=== PATIENT | female | born 1995 | race Caucasian/White ===

== ENCOUNTER 2021-05-24 11:09 | Outpatient (RCR) | payer OTHER, SELFPAY | END 2021-08-20 23:59 | disposition home or self-care (01) | LOC: ANHLAB 11:09 | PROVIDERS: Visit Provider Nurse Practitioner | DX: O20.0 Threatened abortion (principal); Z3A.00 Weeks of gestation of pregnancy not specified | CPT/HCPCS: 36415; 84702; 86850; 86900; 86901 ==

== ENCOUNTER → 2021-05-30 14:24 | Outpatient (CLI) | payer OTHER, SELFPAY ==
--- NOTE | ~2021-05-30 | US_ITS ---
EXAMINATION: US OB transvaginal DATE: 05/30/2021 14:55 INDICATION: viability. TECHNIQUE: Real-time transabdominal and transvaginal obstetric ultrasound. FINDINGS: No prior studies for comparison. The uterus measures 8.6 x 4.5 x 5.3 cm. There is an intrauterine gestational sac, with pole ivette ntified. The crown rump length measures 0.26 cm, which correlates with a estimated gestational age o f 5 weeks 6 days. heart tones are identified measuring 97 BPM . There is a small subchorionic hemorrhage. To the gestational sac measuring 1.6 x 1.1 x 0.8 cm. There is a second subchorionic hemo rrhage inferiorly measuring 1 x 1 x 0.6 cm. The ovaries are within normal limits. IMPRESSION: 1. SL IUP with an EGA of 5 weeks, 6 days (EDC by current ultrasound of 01/24/2022). 2: 2 separate areas of subchorionic hemorrhage superior and inferior to the gestational sac. Reviewed, dictated and finalized at location A. IMPRESSION: 1. SL IUP with an EGA of 5 weeks, 6 days (EDC by current ultrasound of ). 2: 2 separate areas of subchorionic hemorrhage superior and inferior to the ge stational sac.
== END ==
PROVIDERS: Visit Provider Obstetrics & Gynecology
DX: O36.80X0 Pregnancy with inconclusive fetal viability, not applicable or unspecified (principal); Z3A.01 Less than 8 weeks gestation of pregnancy; O36.8911 Maternal care for other specified fetal problems, first trimester, fetus 1
CPT/HCPCS: 76817

== ENCOUNTER → 2021-06-13 11:22 | Outpatient (CLI) | payer OTHER, SELFPAY ==
--- NOTE | ~2021-06-13 | US_ITS ---
EXAMINATION: US OB transvaginal DATE: 06/13/2021 11:48 INDICATION: Subchorionic hematoma follow-up. TECHNIQUE: Real-time transvaginal pelvic ultrasound was performed. COMPARISON: ultrasound 05/30/21 FINDINGS: The uterus measures 9.1 x 5.1 x 6.2 cm. There is an intrauterine gestational sac. A yolk sac is iden tified. The crown rump length measures 3 mm, which correlates with an estimated gestational ag e of 5 weeks and 6 day(s) (+/-) 4 day(s). heart motion is not identified by M-mode Doppler, whi ch may be normal at this size. The right ovary measures 3.0 x 2.0 x 3.0 cm. The left ovary measures 2 .6 x 1.6 x 2.1 cm. There is no free fluid in the pelvis. IMPRESSION: 1. Single intrauterine gestation measuring 3 mm without change in size from 05/30/2021 suggesting fe wilfred demise. Correlate with beta-hCG. Reviewed, dictated and finalized at location A. STARTER IMPRESSION: 1. Single intrauterine gestation measuring 3 mm without change in size from suggesting demise. Correlate with beta-hCG.
== END ==
PROVIDERS: Visit Provider Obstetrics & Gynecology
DX: O36.8911 Maternal care for other specified fetal problems, first trimester, fetus 1 (principal); Z3A.01 Less than 8 weeks gestation of pregnancy
CPT/HCPCS: 76817

== ENCOUNTER → 2021-06-20 09:23 | Outpatient (CLI) | payer OTHER, SELFPAY ==
--- NOTE | ~2021-06-20 | US_ITS ---
EXAMINATION: US OB transvaginal EXAM DATE: 06/20/2021 09:46 INDICATION: Incomplete miscarriage . 1st trimester. TECHNIQUE: Pelvic obstetrical transabdominal sonogram was performed by a technologist. There are mu ltiple grayscale and Doppler images available for interpretation. Comparison is made to prior examina tion from 06/13/2021. FINDINGS: Uterus measures 9.2 x 4.2 x 5.4 cm. The previously seen gestation sac has significantly dec reased in size, measuring 6 mm mean sac diameter. No viable pole or yolk sac identified. demise with retained products. The endometrium is thickened at 1.5 cm. The ovaries are morphologicall y normal. IMPRESSION: demise, retained products of conception. Reviewed, dictated and finalized at location B. EF WORKER
== END ==
PROVIDERS: Visit Provider Obstetrics & Gynecology
DX: O03.4 Incomplete spontaneous abortion without complication (principal)
CPT/HCPCS: 76817

== ENCOUNTER 2021-06-20 11:11 | Day surgery (SDC) | payer OTHER, SELFPAY ==
[2021-06-20 10:31] VITALS: BMI 29.6
--- NOTE | 2021-06-20 10:39 | PC.NURSE ---
Report to the Outpatient Waiting Room, entrance under the green pavilion located off [facility], at time 1130 on date 06/20/21. OR Time: 1330. - You and your visitor will be asked a series of questions to screen for COVID 19 for your protection. - A mask is required within the hospital. - Only one visitor is allowed at this time. Patient visitors will be guided where to wait when not with patient. Preoperative COVID Testing Requirements: No COVID Test needed if: (proof is required; if not received patient will have Rapid Test prior to entry) - Patient has received COVID Vaccine at least 14 days prior to procedure date or - Patient has positive COVID test result within last 90 days of surgery date. COVID Test needed if above criteria is not met If not COVID vaccinated a COVID test must be conducted within 72 hours of surgery and patient is asked to isolate self from time of testing until procedure. You will go to the [facility] for your COVID testing. The [facility] is located at the corner of [address] [facility]. You will only be called if COVID results are positive and your surgeon may reschedule your elective surgery date. Patients may have clear liquids (water, carbonated beverages, clear teas, apple juice) until 3 hours prior to surgery with a maximum of 20 ounces. - No food from midnight until time of surgery - Infants may have breast milk until 4 hours before surgery, infant formula 6 hours prior to surgery. - Children will be allowed to drink immediately following surgery. If applicable, please bring a bottle or sippy cup to assist with drinking. Juice, water, soda, and popsicles are readily available. For infants on formula, please bring formula the day of surgery. Pacifiers are allowed. Take the following medications with a SIP of water the morning of surgery: BUSPIRONE, EFFEXOR, PAIN PILL (IF NEEDED) Medications to discontinue per physician: N/A Date to take last dose: N/A Please no make-up, nail bengali, hairspray, perfume, deodorant, or body powder the day of surgery. No jewelry (including any body piercings) or valuables the day of surgery, leave them at home. Please take a shower or bath the night before, or the morning of, surgery with an antibacterial soap. Wear comfortable, loose fitting clothing. Children are encouraged to wear pajamas. - Jewelry must be removed prior to entering the operating room. Rings and piercings that are not removed may be cut off. - The hospital will not accept responsibility for valuables. - Please leave all valuables, including medications, at home the day of surgery. If you are going home after surgery, a licensed patient transportation driver must drive you home. - NO public transportation without another adult. - We recommend that an adult stay with you for 24 hours following discharge. - We also recommend that you do not drive, make important decision, drink alcoholic beverages, or take any drugs that were not prescribed by your health care provider for at least 24 hours after your discharge time. For Pediatric surgeries, we recommend two adults accompany the child home (only one inside the building at this time). Follow any additional instructions given to you from your surgeon. Telephone instructions given to CHRISTOPHER KUMAR and asked if any additional questions and then verbalized understanding. Patient advised to call surgeon office or pre surgery nurse liaison [phone] if any additional questions.
--- NOTE | 2021-06-20 11:38 | PM.HPGS ---
History of Present Illness History of Present Illness Consent: Risks, benefits, and alternatives have been discussed and questions answered. Patient agrees to proceed with procedure. Chief complaint: missed AB Narrative: Arielle Caro is a 26 year old female approx 6 weeks by ultrasound with demise. Patient took cytotec on 06/14/2021 and 06/15/2021. Patient reported bleeding started on and reports still bleeding heavy and passiing tissue. Patient seen in office and products removed from vagina and os. Patient sent for Ultrasound and shows products of conception and clots. Review of Systems Constitutional: Constitutional: Reports fatigue and Reports lethargy PMF Past Medical History Medical History (Updated 06/20/21 @ 11:44 by Marcelino Fernandez MD) Incomplete Social History Social History Smoking status: Never smoker Alcohol intake: current Drinks per week: 2 Substance use: never Substance use type: does not use Living arrangements: with family Spiritual care concerns: No Meds Home Medications and Allergies Home Medications Medication Instructions Recorded Confirmed Type buspirone 10 mg PO BID 06/20/21 06/20/21 History hydrocodone-acetaminophen [[place]] 1 tablet PO Q6H PRN 06/20/21 06/20/21 History venlafaxine [Effexor XR] 75 mg PO DAILY 06/20/21 06/20/21 History Allergies Allergy/AdvReac Type Severity Reaction Status Date / Time No Known Allergies Allergy Verified 06/20/21 10:29 Exam Const: General: cooperative Orientation/consciousness: patient oriented x3 Resp: Auscultation: clear to auscultation bilaterally Cardio: Rate: regular rate Rhythm: regular rhythm GI: GI Palp: Yes Soft to palpation : Speculum Exam - Vagina: normal appearance of the vagina, vaginal bleeding and tissue present in vagina Assessment and Plan Assessment and plan (1) Incomplete : Code(s): O03.4 - Incomplete spontaneous without complication Status: Acute Assessment and Plan: scheduled for a suction dilation and curettage risk and benefits reviewed with patient.
[2021-06-20 11:45] VITALS: BP 124/65; PULSE 76; RESP 14; TEMP 36.4; O2SAT 100; BMI 29.2
--- NOTE | 2021-06-20 13:10 | SUR.PREOP ---
1310- Notified Dr. Fernandez patient is documented in blood bank history as O positive, per Dr. Fernandez no RH factor lab needed. Clarified giving 1000 MG PO Tylenol to patient pre operatively with patient having taken [place] 5-325MG at [address]. [address] Fernandez discontinue orders for Tylenol.
--- NOTE | 2021-06-20 13:12 | WPDANESEPPF ---
Anes - Initial Pre Proc Eval Procedure: Operation Date: 06/20/21 13:30 Proposed Procedures p Suction Dilatation and Curettage - Marcelino Fernandez MD Date/Time: 06/20/21 13:12 Surgeon: Marcelino Fernandez MD Pre Op Diagnosis: missed AB Patient Data Age: 26 Gender: F Height: 1.57 m Weight: 72.4 kg Allergies Allergy/AdvReac Type Severity Reaction Status Date / Time No Known Allergies Allergy Verified 06/20/21 13:08 Home Medications Medication Instructions Recorded Confirmed Type buspirone 10 mg PO BID 06/20/21 06/20/21 History doxycycline hyclate [Doxy-Caps] 100 mg PO BID 06/20/21 06/20/21 History hydrocodone-acetaminophen [[place]] 1 tablet PO Q6H PRN 06/20/21 06/20/21 History venlafaxine [Effexor XR] 75 mg PO DAILY 06/20/21 06/20/21 History Patient hx anesthesia problems: none Family hx anesthesia problems: none Results Review: All pre-operative results and documents have been reviewed as part of the pre-operative evaluation. [facility] Past Medical History Medical History (Updated 06/20/21 @ 13:13 by Robert Perry MD) Incomplete Overweight Surgical History Surgical History (Updated 06/20/21 @ 13:15 by Robert Perry MD) History of lumbar surgery Social History Social History Smoking status: Never smoker Alcohol intake: current Drinks per week: 2 Substance use: never Substance use type: does not use Living arrangements: with family Spiritual care concerns: No Anes - Eval Final PreProcedure Day of Procedure 06/20/21 13:12 Patient weight: overweight Heart: regular rate and rhythm Lungs: clear to auscultation Airway: Mallampati scale class II Neurological: alert and oriented Last oral intake: >/= 8 hours ASA classification: II Emergent: no Anesthetic plan: proceed Anesthesia type and monitoring: general GIVS and standard monitoring Results Review: All pre-operative results and documents have been reviewed as part of the pre-operative evaluation. Informed Consent: The patient's anesthetic plan and its attendant risks and benefits were discussed with the patient/family/POA. Questions were solicited and answers provided to the satisfaction of the patient/family/POA.
[2021-06-20] MEDS: LACTATED RINGERS 1,000 ML 30 ML IV CONT (13:16)
--- NOTE | 2021-06-20 13:25 | SUR.PREOP ---
1325- Notified patient Arielle and spouse procedure may be delayed. Patient and spouse verbalized understanding.
--- NOTE | 2021-06-20 13:37 | WPDHPUPDATE1 ---
History and Physical Update Update Date/Time: 06/20/21 13:37 History and Physical has been reviewed, including an updated exam of the patient. There are NO changes in the patient's condition. Risks, benefits, and alternatives have been discussed and questions answered. Patient agrees to proceed with procedure.
[2021-06-20 14:09] VITALS: BP 124/74; PULSE 78; RESP 16; O2SAT 100
[2021-06-20 14:39] VITALS: BP 127/80; PULSE 71; RESP 16
[2021-06-20 14:50] VITALS: BP 107/69; PULSE 72; RESP 16
--- NOTE | 2021-06-21 13:17 | W.PM.PROC2 ---
Procedure Note - Detailed Date of Procedure 06/21/21 Pre-op Diagnosis missed AB Post-op Diagnosis same Procedure Performed suction dilation and curettage Surgeon Marcelino Fernandez MD Anesthesia MAC and local Description of Procedure patient taking to or and placed in lithotomy position. a bivalve speculum was placed and uterus sounded to 9 cm. the cervix was injected with lidocaine bilaterally at 2 and 10 oclock position with 1% lidocaine. The cervix was dilated. A 8 mm suction curet was placed in cavity and activated evacuating contents in all four quadrants. a sharp curettage was performed in all four quadrants. . hemostasis was and patient taken to recovery in stable condition Estimated Blood Loss -75.0 Drains No Packing No Pathology yes Complications None Condition stable Disposition observation
== END 2021-06-20 15:00 | disposition home or self-care (01) ==
PROVIDERS: PCP Family Medicine; Visit Provider Obstetrics & Gynecology
PROC: (CPT 59820; principal; 2021-06-20 13:30)
DX: O02.1 Missed abortion (principal); R53.83 Other fatigue
CPT/HCPCS: 59820; 88305; J1100; J2250; J2405; J2704; J3010; J7120

== ENCOUNTER 2022-04-08 17:24 | Outpatient (RCR) | payer OTHER, SELFPAY | END 2022-07-07 23:59 | disposition home or self-care (01) | LOC: ANHLAB 17:24 | PROVIDERS: Visit Provider Obstetrics & Gynecology Gynecology | DX: O26.21 Pregnancy care for patient with recurrent pregnancy loss, first trimester (principal); Z3A.00 Weeks of gestation of pregnancy not specified | CPT/HCPCS: 36415; 84702 ==

== ENCOUNTER 2022-04-10 15:32 | Outpatient (RCR) | payer OTHER, SELFPAY | END 2022-07-09 23:59 | disposition home or self-care (01) | LOC: ANHLAB 15:32 | PROVIDERS: Referring Provider Obstetrics & Gynecology Gynecology; Visit Provider Obstetrics & Gynecology Gynecology | DX: O26.21 Pregnancy care for patient with recurrent pregnancy loss, first trimester (principal); Z3A.00 Weeks of gestation of pregnancy not specified | CPT/HCPCS: 36415; 84702 ==

== ENCOUNTER → 2022-04-20 11:21 | Outpatient (CLI) | payer OTHER, SELFPAY ==
--- NOTE | ~2022-04-20 | US_ITS ---
EXAMINATION: US OB transvaginal DATE: 04/20/2022 11:50 INDICATION: Incomplete miscarriage. TECHNIQUE: Real-time transvaginal obstetric ultrasound. FINDINGS: No prior studies for comparison. The uterus measures 8.7 x 5.1 x 8 cm. There is an intrauterine gestational sac, with pole ident ified. There aren't multiple subchorionic hematomas including to the right of the uterus measuring 1. 9 x 1.2 x 1.8 cm into the left of the uterus measuring 2.8 x 1 x 0.8 cm. The crown rump length measur es 1.46 cm, which correlates with a estimated gestational age of 7 weeks 6 days. heart tones are identified measuring 160 BPM. There is a small amount of free fluid in the pelvis. The right ovar y is unremarkable. IMPRESSION: 1. SL IUP with an EGA of 7 weeks, 6 days (EDC by current ultrasound of 12/01/2022). 2: Moderate sized subchorionic hematomas. Recommend attention to these abnormalities on subsequent e xaminations. Reviewed, dictated and finalized at location A. IMPRESSION: 1. SL IUP with an EGA of 7 weeks, 6 days (EDC by current ultrasound of 12/02/19). 2: Moderate sized subchorionic hematomas. Recommend attention to these abnorma lities on subsequent examinations.
== END ==
PROVIDERS: PCP Obstetrics & Gynecology Gynecology; Visit Provider Obstetrics & Gynecology Gynecology
DX: O26.21 Pregnancy care for patient with recurrent pregnancy loss, first trimester (principal); Z3A.01 Less than 8 weeks gestation of pregnancy; O36.8911 Maternal care for other specified fetal problems, first trimester, fetus 1
CPT/HCPCS: 76817

== ENCOUNTER → 2022-05-25 10:30 | Outpatient (CLI) | payer OTHER, SELFPAY ==
--- NOTE | ~2022-05-25 | US_ITS ---
EXAMINATION: US OB <= 14 weeks fetus DATE: 05/25/2022 11:01 INDICATION: Subchorionic hematoma follow-up during first trimester TECHNIQUE: Real-time pelvic transabdominal and transvaginal ultrasound was performed. COMPARISON: 04/20/2022 FINDINGS: The uterus measures 11.8 x 7 x 10.2 cm. There is an intrauterine gestational sac. No persi stent subchorionic hematoma is identified A yolk sac is identified. heart motion is identified measuring 148 beats per minute (bpm) by M-mode Doppler. The crown rump length measures 7 cm, wh ich correlates with an estimated gestational age of 13 weeks and 1 day(s) (+/-) 8 day(s). The ovaries are not visualized however no adnexal abnormality is seen. There is no free fluid in the pelvis. IMPRESSION: 1. Live intrauterine with an estimated gestational age of 13 weeks and 1 day(s) (+/-) 1 day (s) and an estimated delivery date of 11/29/2022. 2. No persistent subchorionic hematoma identified. Reviewed, dictated and finalized at location A. IMPRESSION: 1. Live intrauterine with an estimated gestational age of 13 weeks an d 1 day(s) (+/-) 1 day(s) and an estimated delivery date of 11/29/2022. 2. No persistent subchorionic hematoma identified.
== END ==
PROVIDERS: PCP Obstetrics & Gynecology Gynecology; Visit Provider Obstetrics & Gynecology Gynecology
DX: O36.8910 Maternal care for other specified fetal problems, first trimester, not applicable or unspecified (principal); O26.21 Pregnancy care for patient with recurrent pregnancy loss, first trimester; Z3A.13 13 weeks gestation of pregnancy
CPT/HCPCS: 76801

== ENCOUNTER → 2022-07-03 10:15 | Outpatient (CLI) | payer OTHER, SELFPAY ==
--- NOTE | ~2022-07-03 | US_ITS ---
EXAMINATION: US OB /maternal detail DATE: 07/03/2022 11:02 INDICATION: Second trimester anatomic survey TECHNIQUE: Real-time ultrasound of the pelvis was performed. COMPARISON: None. FINDINGS: There is a single living fetus in vertex presentation. The placenta is anterior and 4.1 cm from the i nternal cervical os. The cervical length is 3.8 cm. heart rate is 147 beats per minute (bpm). cardiac activity and movement are noted. The amniotic fluid index is subjectively normal. The following anatomy was identified as normal: 4 chamber heart 3 vessel cord cord insertion kidneys urinary bladder stomach spine diaphragm ventricles cisterna magna cerebellum The following biometric data were obtained: Biparietal diameter (BPD): 4.4 cm; head circumference (HC): 16.0 cm; abdominal circumference (AC): 13 .5 cm; femur length (FL): 2.9 cm. These measurements are concordant. Estimated weight is 267 g +/- 40 g, which correlates with the 78th percentile when 12/01/2022 is used as estimated date of delivery. As single measurements, these parameters are each equal to the following estimated gestational ages w ith ranges of +/- 2 standard deviations: BPD: 19 weeks 2 days ( 17 weeks 4 days - 21 weeks 0 days). HC: 18 weeks 6 days ( 17 weeks 2 days - 20 weeks 2 days). AC: 19 weeks 0 days ( 16 weeks 6 days - 21 weeks 0 days). FL: 19 weeks 0 days ( 17 weeks 2 days - 20 weeks 6 days). estimated gestational age based solely on measurements from this exam is 19 weeks 0 days +/- 1 weeks 2 days. IMPRESSION: 1. Single living fetus in vertex presentation. 2. Estimated weight is 267 g +/- 40 g, which correlates with the 78th percentile when 12/01/2022 is used as estimated date of delivery. Reviewed, dictated and finalized at location A. ER JOINER IMPRESSION: 1. Single living fetus in vertex presentation. 2. Estimated weight is 267 g +/- 40 g, which correlates with the 78th per centile when 12/01/2022 is used as estimated date of delivery.
== END ==
PROVIDERS: PCP Obstetrics & Gynecology Gynecology; Visit Provider Obstetrics & Gynecology Gynecology
DX: Z36.9 Encounter for antenatal screening, unspecified (principal)
CPT/HCPCS: 76805

== ENCOUNTER → 2022-10-31 11:23 | Outpatient (CLI) | payer BC, SELFPAY ==
--- NOTE | ~2022-10-31 | US_ITS ---
EXAMINATION: US OB follow up DATE: 10/31/2022 12:20 INDICATION: Size greater than dates. TECHNIQUE: Real-time ultrasound of the pelvis was performed. COMPARISON: Ultrasound 07/03/2022, 05/25/2022, 04/20/2022 FINDINGS: There is a single living fetus in vertex presentation. The placenta is anterior. heart rate is 141 beats per minute (bpm). The amniotic fluid index is 23.7 cm, which is normal. The following biometric data were obtained: Biparietal diameter (BPD): 9.0 cm; head circumference (HC): 32.2 cm; abdominal circumference (AC): 32 .7 cm; femur length (FL): 6.6 cm. These measurements are concordant. Estimated weight is 2786 g +/- 418 g, which correlates with the 50th percentile when 11/29/22 is used as estimated date of delivery. As single measurements, these parameters are each equal to the following estimated gestational ages: BPD: 36 weeks 4 days. HC: 36 weeks 2 days. AC: 36 weeks 4 days. FL: 33 weeks 5 days. estimated gestational age based solely on measurements from this exam is 35 weeks 6 days +/- 2 weeks 4 days. IMPRESSION: 1. Single living fetus in vertex presentation. 2. Estimated weight is 2786 g +/- 418 g, which correlates with the 50th percentile when 3 is used as estimated date of delivery. Note that estimated date of delivery based on the first ultr asound from 04/20/2022 would be 12/01/2022. Reviewed, dictated and finalized at location A. IMPRESSION: 1. Single living fetus in vertex presentation. 2. Estimated weight is 2786 g +/- 418 g, which correlates with the 50th percentile when 11/29/22 is used as estimated date of delivery. Note that estima [place] date of delivery based on the first ultrasound from 04/20/2022 would be 2022.
== END ==
PROVIDERS: PCP Advanced Practice Midwife; Visit Provider Advanced Practice Midwife
DX: O36.63X0 Maternal care for excessive fetal growth, third trimester, not applicable or unspecified (principal); Z3A.35 35 weeks gestation of pregnancy
CPT/HCPCS: 76816

== ENCOUNTER 2022-11-16 10:11 | Outpatient (CLI) | payer BC, SELFPAY ==
[2022-11-16] VITALS (7 sets, daily range): BP systolic 134–151; BP diastolic 68–96; PULSE 80–143
[2022-11-16 10:47] LABS: Basophils Absolute Auto 0.1 K/mm3 (0.0-0.1); Basophils Percent Auto 0.5 % (0.2-1.2); Eosinophils Absolute Auto 0.2 K/mm3 (0-0.3); Eosinophils Percent Auto 1.4 % (0-4.4); Hematocrit 37.5 % (37.0-47.0); Hemoglobin 12.9 g/dL (12.0-15.0); Immature Granulocyte Absolute 0.48 K/mm3 (0.00-0.031); Lymphocytes Absolute Auto 2.23 K/mm3 (0.9-3.2); Lymphocytes Percent Auto 18.6 % (18.3-44.2); Mean Corpuscular HGB Conc 34.4 g/dl (32-36); Mean Corpuscular Volume 93.1 fl (80-100); Mean Platelet Volume 8.6 fl (7.4-10.4); Monocytes Absolute Auto 0.7 K/mm3 (0.1-0.6); Monocytes Percent Auto 5.9 % (2.6-8.5); Neutrophils Absolute Auto 8.3 K/mm3 (1.3-6.7); Neutrophils Percent Auto 69.6 % (45.5-73.1); Platelet Count Result 200 k/mm3 (150-375); Red Blood Count 4.03 M/mm3 (4.2-5.4); Red Cell Distribution Width 12.5 % (11.5-14.5)
[2022-11-16 11:00] LABS: Alanine Aminotransferase 17 U/L (6-35); Albumin Level 3.9 g/dL (3.5-5.1); Alkaline Phosphatase 156 U/L (38-126); Anion Gap 5 mmol/L (8-16); Aspartate Amino Transferase 20 U/L (14-36); Bilirubin,Total 0.4 mg/dL (0.2-1.3); Blood Urea Nitrogen 6 mg/dL (7-17); Calcium 8.9 mg/dL (8.4-10.2); Carbon Dioxide 23 mmol/L (22-30); Chloride 105 mmol/L (98-107); Estimated Glomerular Filt Rate > 60; Glucose 79 mg/dL (65-110); Potassium 4.1 mmol/L (3.4-5.0); Sodium 133 mmol/L (137-145); Uric Acid 2.8 mg/dL (2.5-7.5)
[2022-11-16 11:11] LABS: Appearance Urine Clear (Clear); Bilirubin Urine Negative (Negative); Blood Urine Negative (Negative); Color Urine Yellow (Yellow); Glucose Urine UA Negative (Negative); Ketones Urine Negative (Negative); Leukocyte Esterase Ur Negative LEU/UL (NEGATIVE); Nitrate Urine Negative (Negative); Protein Urine Negative (Negative); Specific Grav Ur 1.009 (1.001-1.035); Urobilinogen Urine 0.2 mg/dL (<2.0); pH Urine 7.5 (5.0-9.0)
[2022-11-16 11:18] LABS: Total Protein Urine Random 12 mg/dL; Ur Ttl Prot Creatinine Ratio 0.35 mg/mg (0-0.20)
[2022-11-16 11:24] LABS: Add Urine Microscopic? NO
--- NOTE | 2022-11-16 18:22 | PM.OBTRLD ---
OB - Triage/Final Diagnosis Visit Information Reason for evaluation: other (Elevated BP in the office. Preeclampsia labs. ) Comments/Additional reasons for admission: I have assessed the risk for this patient, Arielle Caro, and determined that she would benefit from observation care. Evaluation Laboratory results: Laboratory Tests 11/16/22 11/16/22 11/16/22 10:39 10:39 10:39 WBC 12.0 H RBC 4.03 L Hgb 12.9 Hct 37.5 MCV 93.1 MCH 32.0 MCHC 34.4 RDW 12.5 Plt Count 200 MPV 8.6 Immature Gran % (Auto) 4.0 H Neut % (Auto) 69.6 Lymph % (Auto) 18.6 [place] % (Auto) 5.9 Eos % (Auto) 1.4 Baso % (Auto) 0.5 Lymph # (Auto) 2.23 [place] # (Auto) 0.7 H Eos # (Auto) 0.2 Baso # (Auto) 0.1 Abs Immat Gran (auto) 0.48 H Absolute Neuts (auto) 8.3 H Absolute Nucleated RBC 0.0 Nucleated RBC % 0.0 Sodium Potassium Chloride Carbon Dioxide Anion Gap BUN Creatinine Estim Creat Clear Calc Estimated GFR Glucose Uric Acid Calcium Total Bilirubin AST ALT Alkaline Phosphatase Total Protein Albumin Urine Color Yellow Urine Appearance Clear Urine pH 7.5 Ur Specific [place] 1.009 Urine Protein Negative Urine Glucose (UA) Negative Urine Ketones Negative Ur Blood (Man) Negative Urine Nitrate Negative Urine Bilirubin Negative Urine Urobilinogen 0.2 Ur Leukocyte Esterase Negative U Random Total Protein 12 Urine Creatinine 34.0 Protein/Creat Ratio 2 0.35 H 11/16/22 10:39 WBC RBC Hgb Hct MCV MCH MCHC RDW Plt Count MPV Immature Gran % (Auto) Neut % (Auto) Lymph % (Auto) [place] % (Auto) Eos % (Auto) Baso % (Auto) Lymph # (Auto) [place] # (Auto) Eos # (Auto) Baso # (Auto) Abs Immat Gran (auto) Absolute Neuts (auto) Absolute Nucleated RBC Nucleated RBC % Sodium 133 L Potassium 4.1 Chloride 105 Carbon Dioxide 23 Anion Gap 5 L BUN 6 L Creatinine 0.30 L Estim Creat Clear Calc Not Reportable Estimated GFR > 60 Glucose 79 Uric Acid 2.8 Calcium 8.9 Total Bilirubin 0.4 AST 20 ALT 17 Alkaline Phosphatase 156 H Total Protein 7.0 Albumin 3.9 Urine Color Urine Appearance Urine pH Ur Specific [place] Urine Protein Urine Glucose (UA) Urine Ketones Ur Blood (Man) Urine Nitrate Urine Bilirubin Urine Urobilinogen Ur Leukocyte Esterase U Random Total Protein Urine Creatinine Protein/Creat Ratio 2 Vital signs: Vital Signs - 24 hr 11/16/22 10:45 11/16/22 11:00 11/16/22 11:16 Pulse Rate 86 90 86 Blood Pressure 134/92 H 141/96 H 138/85 Blood Pressure [Right Arm] 11/16/22 11:31 11/16/22 11:46 11/16/22 12:05 Pulse Rate 143 H 82 80 Blood Pressure 142/68 H 151/90 H Blood Pressure [Right Arm] 134/92 H 11/16/22 12:09 Pulse Rate 80 Blood Pressure Blood Pressure [Right Arm] 134/92 H
== END 2022-11-16 12:15 | disposition home or self-care (01) ==
LOC: ANHOBOP 10:15 → ANHOBPP 10:17
PROVIDERS: PCP Advanced Practice Midwife; Visit Provider Obstetrics & Gynecology Gynecology
DX: O13.9 Gestational [pregnancy-induced] hypertension without significant proteinuria, unspecified trimester (principal); Z3A.00 Weeks of gestation of pregnancy not specified
CPT/HCPCS: 36415; 59025; 80053; 81003; 82570; 84156; 84550; 85025; 87086; 99199

== ENCOUNTER 2022-11-17 11:14 | Outpatient (CLI) | payer BC, SELFPAY ==
[2022-11-17] VITALS (7 sets, daily range): BP systolic 128–165; BP diastolic 77–109; PULSE 84–103; BMI 33.6
[2022-11-17 12:37] LABS: Collection Time Urine 24 HOURS; Total Volume 24 Hour Urine 2650 ml
[2022-11-17 12:43] LABS: Patient Weight 190 Lbs
[2022-11-17 12:52] LABS: Creatinine Clearance Urine 186.3 ml/min (75-125); Creatinine Urine 33.1 mg/dL
[2022-11-17 13:43] LABS: Total Protein Urine 24 Hr 588 mg/24hr (0-149); Total Protein Urine Random 22.2 mg/dL (0.0-11.9)
--- NOTE | 2022-11-17 17:06 | WPDANESEPP ---
Anes - Eval Pre Procedure Procedure: Labor epidural Date/Time: 11/17/22 17:06 Pre Op Diagnosis: 24hr Urine Patient Data Age: 27 Gender: F Height: 1.6 m Weight: 86.2 kg Last Vital Signs Pulse 98 11/17/22 13:16 BP 141/85 H 11/17/22 13:16 Allergies Allergy/AdvReac Type Severity Reaction Status Date / Time No Known Allergies Allergy Verified 06/20/21 13:08 Home Medications Medication Instructions Recorded Confirmed Type buspirone 10 mg tablet 10 mg PO BID 06/20/21 11/17/22 History venlafaxine 75 mg capsule,extended 75 mg PO DAILY 06/20/21 11/17/22 History release 24 hr (Effexor XR) cholecalciferol (vitamin D3) 25 25 mcg PO DAILY 10/31/22 10/31/22 History mcg (1,000 unit) tablet prenat.vits,jose,gsk-qrbo-zzhcq 1 tablet PO HS 10/31/22 10/31/22 History fexofenadine 180 mg tablet 180 mg PO DAILY 11/16/22 11/17/22 History (Yasmin Allergy) Laboratory Tests 11/16/22 12:00 U Random Total Protein 22.2 mg/dL H mg/dL (0.0-11.9) Ur 24 Hour Volume 2650 ml ml Urine Creatinine 33.1 mg/dL mg/dL Creatinine Clearance 186.3 ml/min H ml/min (75-125) Ur Total Protein 24 Hr 588 mg/24hr H mg/24hr (0-149) Patient hx anesthesia problems: none Family hx anesthesia problems: none Results Review: All pre-operative results and documents have been reviewed as part of the pre-operative evaluation. [facility] Past Medical History Medical History (Updated 11/17/22 @ 17:16 by Chela Rivera CRNA) Anxiety and depression Incomplete Overweight PIH ( induced hypertension) Surgical History Surgical History (Updated 11/17/22 @ 17:15 by Chela Rivera CRNA) History of lumbar surgery L 4-S2 PSI, L4-S1 PSF, L% ramires Joyce,[id number], Bilateral L4-L5 Foraminotomies and right Iliac crest bone grafts Family History Family History (Updated 10/31/22 @ 13:36 by Louise Olvera RN) Grandparent Diabetes mellitus Father Diabetes mellitus Aneurysm Grandparent Diabetes mellitus Social History Social History Smoking status: Never smoker Alcohol intake: current Drinks per week: 2 Substance use: never Substance use type: does not use Lack of Transportation: No Lack of Food: Never True Current Housing: I Have Housing Concerned About Future Housing: No Difficulty Paying Gas/Electric Bills: No Difficulty Paying for Meds: No Currently Unemployed: No Education: Associate Degree Difficulty w/ Childcare or Family Care: No Living arrangements: with family Spiritual care concerns: No Exam Day of Procedure 11/17/22 17:06 Patient weight: obese Heart: regular rate and rhythm Lungs: normal air movement Airway: Mallampati scale Neurological: alert and oriented
--- NOTE | 2022-11-17 17:14 | WPDOBADMIT ---
Obstetrics - Admit Note Admission Note: record reviewed. No pertinent additions to the history and/or any subsequent changes in the physical findings that are not consistent with the expected course of the were found. Additions to the history and/or subsequent changes in the physical findings follow. Preeclampsia diagnosed 11/17/22 based on 24 hour urine results.
== END 2022-11-17 13:22 | disposition home or self-care (01) ==
LOC: ANHOBOP 12:12 → ANHLDR 12:13
PROVIDERS: PCP Advanced Practice Midwife; Visit Provider Advanced Practice Midwife
DX: O10.919 Unspecified pre-existing hypertension complicating pregnancy, unspecified trimester (principal)
CPT/HCPCS: 59025; 81050; 82575; 84156; 99199

== ENCOUNTER 2022-11-17 15:03 | Inpatient (IN) | payer BC, SELFPAY ==
--- NOTE | 2022-11-17 15:03 | LDADM ---
This patient, Arielle Caro, was admitted to Labor/Delivery/Recovery 105 on 11/17/22 at 15:03. Plans for labor, pain management and were discussed with patient. Patient/family oriented to hospital policies and general routines including ID bracelet, bed and alarms, visiting hours, pain management, procedures, bathroom and other care routines, personal items, smoking policy, room service/diet and guest tray routines, infant security routines, and visiting hours. Patient/Family are encouraged to report perceived risks to care and to ask questions if they do not understand what they are told or what they should do. See [facility] for further documentation.
[2022-11-17 15:42] VITALS: BMI 33.5
[2022-11-17 15:48] LABS: Basophils Percent Auto 0.4 % (0.2-1.2); Eosinophils Absolute Auto 0.2 K/mm3 (0-0.3); Eosinophils Percent Auto 1.4 % (0-4.4); Hematocrit 36.9 % (37.0-47.0); Hemoglobin 12.5 g/dL (12.0-15.0); Immature Granulocyte Percent A 1.8 % (0-0.5); Lymphocytes Absolute Auto 2.05 K/mm3 (0.9-3.2); Lymphocytes Percent Auto 18.5 % (18.3-44.2); Mean Corpuscular HGB Conc 33.9 g/dl (32-36); Mean Corpuscular Hemoglobin 32.5 pg (26-34); Mean Corpuscular Volume 95.8 fl (80-100); Mean Platelet Volume 8.9 fl (7.4-10.4); Monocytes Absolute Auto 0.6 K/mm3 (0.1-0.6); Monocytes Percent Auto 5.8 % (2.6-8.5); Neutrophils Percent Auto 72.1 % (45.5-73.1); Platelet Count Result 223 k/mm3 (150-375); Red Blood Count 3.85 M/mm3 (4.2-5.4); Red Cell Distribution Width 12.7 % (11.5-14.5); White Blood Count 11.1 K/mm3 (4.5-10.0)
[2022-11-17 16:03] LABS: Alanine Aminotransferase 20 U/L (6-35); Albumin Level 3.6 g/dL (3.5-5.1); Alkaline Phosphatase 150 U/L (38-126); Anion Gap 8 mmol/L (8-16); Aspartate Amino Transferase 25 U/L (14-36); Bilirubin,Total 0.3 mg/dL (0.2-1.3); Blood Urea Nitrogen 7 mg/dL (7-17); Calcium 8.9 mg/dL (8.4-10.2); Carbon Dioxide 20 mmol/L (22-30); Chloride 106 mmol/L (98-107); Estimated CRCL calculation 175 ml/min; Estimated Glomerular Filt Rate > 60; Glucose 124 mg/dL (65-110); Sodium 134 mmol/L (137-145)
[2022-11-17 16:04] LABS: Uric Acid 3.2 mg/dL (2.5-7.5)
[2022-11-17 16:12] VITALS: BP 135/81; PULSE 88
[2022-11-17 16:16] VITALS: BP 145/89; PULSE 84
[2022-11-17] MEDS: miSOPROStol 25 MCG TABLET BY MOUTH ×2 (16:39→21:13)
[2022-11-17 17:55] VITALS: TEMP 36.5
[2022-11-17 19:05] VITALS: RESP 16; TEMP 36.5
[2022-11-17 19:07] VITALS: BP 134/82; PULSE 78
--- NOTE | 2022-11-17 19:52 | WPDANESEPP ---
Anes - Eval Pre Procedure Procedure: Labor epidural Date/Time: 11/17/22 19:52 Pre Op Diagnosis: Induction of Labor Patient Data Age: 27 Gender: F Height: 1.6 m Weight: 86 kg Last Vital Signs Temp 36.5 C 11/17/22 19:05 Pulse 78 11/17/22 19:07 Resp 16 11/17/22 19:05 BP 134/82 11/17/22 19:07 O2 Del Method Room Air 11/17/22 19:05 Allergies Allergy/AdvReac Type Severity Reaction Status Date / Time No Known Allergies Allergy Verified 06/20/21 13:08 Home Medications Medication Instructions Recorded Confirmed Type buspirone 10 mg tablet 10 mg PO BID 06/20/21 11/17/22 History venlafaxine 75 mg capsule,extended 75 mg PO DAILY 06/20/21 11/17/22 History release 24 hr (Effexor XR) cholecalciferol (vitamin D3) 25 25 mcg PO DAILY 10/31/22 10/31/22 History mcg (1,000 unit) tablet prenat.vits,jose,wem-hsbj-vjfdg 1 tablet PO HS 10/31/22 10/31/22 History fexofenadine 180 mg tablet 180 mg PO DAILY 11/16/22 11/17/22 History (Yasmin Allergy) Laboratory Tests 11/17/22 11/17/22 11/17/22 15:40 15:40 15:40 WBC 11.1 K/mm3 H K/mm3 (4.5-10.0) RBC 3.85 M/mm3 L M/mm3 (4.2-5.4) Hgb 12.5 g/dL g/dL (12.0-15.0) Hct 36.9 % L % (37.0-47.0) MCV 95.8 fl fl (80-100) MCH 32.5 pg pg (26-34) MCHC 33.9 g/dl g/dl (32-36) RDW 12.7 % % (11.5-14.5) Plt Count 223 k/mm3 k/mm3 (150-375) MPV 8.9 fl fl (7.4-10.4) Immature Gran % (Auto) 1.8 % H % (0-0.5) Neut % (Auto) 72.1 % % (45.5-73.1) Lymph % (Auto) 18.5 % % (18.3-44.2) [place] % (Auto) 5.8 % % (2.6-8.5) Eos % (Auto) 1.4 % % (0-4.4) Baso % (Auto) 0.4 % % (0.2-1.2) Lymph # (Auto) 2.05 K/mm3 K/mm3 (0.9-3.2) [place] # (Auto) 0.6 K/mm3 K/mm3 (0.1-0.6) Eos # (Auto) 0.2 K/mm3 K/mm3 (0-0.3) Baso # (Auto) 0.0 K/mm3 K/mm3 (0.0-0.1) Abs Immat Gran (auto) 0.20 K/mm3 H K/mm3 (0.00-0.031) Absolute Neuts (auto) 8.0 K/mm3 H K/mm3 (1.3-6.7) Absolute Nucleated RBC 0.0 K/mm3 K/mm3 (0.0-0.012) Nucleated RBC % 0.0 % % (0.0-0.2) Sodium Potassium Chloride Carbon Dioxide Anion Gap BUN Creatinine Estim Creat Clear Calc Estimated GFR Glucose Uric Acid 3.2 mg/dL mg/dL (2.5-7.5) Calcium Total Bilirubin AST ALT Alkaline Phosphatase Total Protein Albumin RPR Pending Blood Type Antibody Screen 11/17/22 11/17/22 15:40 15:40 WBC RBC Hgb Hct MCV MCH MCHC RDW Plt Count MPV Immature Gran % (Auto) Neut % (Auto) Lymph % (Auto) [place] % (Auto) Eos % (Auto) Baso % (Auto) Lymph # (Auto) [place] # (Auto) Eos # (Auto) Baso # (Auto) Abs Immat Gran (auto) Absolute Neuts (auto) Absolute Nucleated RBC Nucleated RBC % Sodium 134 mmol/L L mmol/L (137-145) Potassium 4.0 mmol/L mmol/L (3.4-5.0) Chloride 106 mmol/L mmol/L (98-107) Carbon Dioxide 20 mmol/L L mmol/L (22-30) Anion Gap 8 mmol/L mmol/L (8-16) BUN 7 mg/dL mg/dL (7-17) Creatinine 0.40 mg/dL L mg/dL (0.7-1.0) Estim Creat Clear Calc 175 ml/min ml/min Estimated GFR > 60 (59 - ) Glucose 124 mg/dL H mg/dL (65-110) Uric Acid Calcium 8.9 mg/dL mg/dL (8.4-10.2) Total Bilirubin 0.3 mg/dL mg/dL (0.2-1.3) AST 25 U/L U/L (14-36) ALT 20 U/L U/L (6-35) Alkaline Phosphatase 150 U
[2022-11-17 21:13] VITALS: BP 125/76; PULSE 78; RESP 16; TEMP 36.8
[2022-11-17] MEDS: busPIRone HCL 10 MG TABLET PO (21:13)
[2022-11-18] VITALS (198 sets, daily range): BP systolic 72–150; BP diastolic 44–115; PULSE 62–120; RESP 14–19; TEMP 36.2–37; O2SAT 93–100
[2022-11-18] MEDS: miSOPROStol 25 MCG TABLET BY MOUTH (02:26)
[2022-11-18 07:19] LABS: Rapid Plasma Reagin Non-Reactive (NonReactive)
[2022-11-18] MEDS: fentaNYL CITRATE INJ (*CRX) 100 MCG/2 ML VIAL 50 MCG IV PUSH (07:46)
--- NOTE | 2022-11-18 08:08 | PM.OBPNLAB ---
Pain Control Date/time seen: 11/18/22 08:00 Pain control: tolerating well Pelvic Exam Dilation (cm): 1 (Fingertip) Effacement (%): 40 station: -3 Amniotic membrane status: Intact Contractions Monitor mode: External Contraction frequency: 3 Contraction phase: Contraction Contraction intensity: Mild Status status: Category l Assessment and Plan Assessment: induction ongoing Comments: CNM to bedside. SC completed and outer os determined to be 1 cm unable to advance through internal os but internal os palpates at a fingertip. Unable to feel presenting part. Bedside ultrasound completed. Fetus is vertex with spine position towards maternal left. Positive heart tones and positive movement observed. Discussed plan of care with patient. Contraction pattern too frequent for a 4th dose of misoprostol. Discussed option of attempting [place] balloon placement and patient is agreeable. Patient given IV dose of fentanyl. A silicone [place] catheter was inserted through the cervical os using a stylet. the stylet was removed and the catheter was inflated with 60 mL sterile saline but immediately ruptured. patient agreeable to a 2nd attempt using a latex catheter. The latex catheter wasinserted through the cervical os using a stylet. the stylet was then removed and the catheter was inflated with 60 mL of sterile saline. Patient tolerated procedure very well. There is minimal bloody show. heart tones reassuring. Plan to start Pitocin if contractions space out.
[2022-11-18] MEDS: VENLAFAXINE HCL XR 75 MG CAP.ER.24H PO (08:27)
[2022-11-18] MEDS: busPIRone HCL 10 MG TABLET PO ×2 (08:27→22:30)
[2022-11-18] MEDS: fentaNYL CITRATE INJ (*CRX) 100 MCG/2 ML VIAL IV PUSH (09:34)
[2022-11-18] MEDS: LACTATED RINGERS 1,000 ML 125 ML IV CONT ×3 (09:35→21:30)
[2022-11-18] MEDS: OXYTOCIN 30 UNITS/NS 500 ML 30 UNITS/500 ML BAG IV CONT (10:21)
[2022-11-18] MEDS: ONDANSETRON INJ 4 MG/2 ML VIAL IV PUSH (10:34)
--- NOTE | 2022-11-18 12:58 | PM.OBPNLAB ---
Pain Control Date/time seen: 11/18/22 12:50 Pain control: tolerating well Pelvic Exam Dilation (cm): 5 (Fingertip) Effacement (%): 60 station: -3 Amniotic membrane status: Intact Contractions Monitor mode: External Contraction frequency: 2 Contraction phase: Contraction Contraction intensity: Moderate Status status: Category l Assessment and Plan Pitocin rate (mU/min): 6 Assessment: induction ongoing Comments: CNM to bedside. Gentle traction applied to [place] balloon and [place] balloon easily expelled from vagina. Normal amount of bloody show present. Cervical exam 5 cm/ 60/ -3 station with head palpated. Discussed plan of care and option for amniotomy and insertion of intrauterine pressure catheter. patient agreeable. Amniotomy performed and there was a large return of clear fluid. Pitocin decreased to 2 milliunits per minute. Intrauterine pressure catheter inserted easily and return was clear fluid. Plan to titrate Pitocin as needed to achieve adequate contraction pattern. Anticipate vaginal . Dr. Zelaya updated.
--- NOTE | 2022-11-18 16:49 | PM.OBPNLAB ---
Pain Control Date/time seen: 11/18/22 16:40 Pain control: tolerating well and epidural Contractions Monitor mode: Internal Intrauterine tone measurement: 170 Status status: Category ll Comments: FHTs reassuring with moderate variability and accels. Assessment and Plan Pitocin rate (mU/min): 10 Assessment: induction ongoing Comments: CNM at bedside. Discussed normal progression of cervical change after dominguez balloon. Epidural infusing well and she denies pain. BPs WNL. No TALLEY, visual changes, or RUQ pain. Anticipate increasing oxytocin as needed to achieve adequate contraction pattern. Dr. Rojas updated on pt status and she is assuming primary care at this time.
[2022-11-19] VITALS (132 sets, daily range): BP systolic 89–147; BP diastolic 34–120; PULSE 64–268; RESP 16–18; TEMP 36.1–36.7; O2SAT 89–100
[2022-11-19] MEDS: PHENYLEPHRINE 1,000 MCG/10 ML SYRINGE 100 MCG IV PUSH (01:40)
[2022-11-19] MEDS: LIDOCAINE HCL 1% LOCAL INJ 20 ML VIAL (05:56)
--- NOTE | 2022-11-19 06:04 | PM.OBPRVD ---
OB - Delivery Note Procedure Delivery date: 11/19/22 Procedure: Events: Preeclampsia w/o severe features Induction method: AROM, Per Pitocin Protocol and Other (cytotec; dominguez balloon) Delivery monitor: External FHT and Internal Uterine Route of delivery: Laceration Description: Perineal - 2nd Degree Delivery repair: vicryl (3-0) Specimen: Yes (placenta) Quantitative Blood Loss (ml): 200 Anesthesia type: Epidural Disposition: Floor Baby Date of : 11/19/22 Weeks of gestation at delivery: 38 gender: Male Weight (pounds): 6 Weight (ounces): 6 presentation: vertex position: Right Occiput Anterior Placenta delivery description: Spontaneous Cord Vessel Description: 3 Vessels and Nuchal Cord score one minute: 7 score five minutes: 9
--- NOTE | 2022-11-19 06:07 | PM.OBDSVD ---
DS: Admitting Diagnosis Discharge Date 11/20/22 Admitting Diagnosis intrauterine at 38 weeks preeclampsia DS: Discharge Diagnosis Discharge Diagnosis (1) (normal spontaneous vaginal delivery): Code(s): O80 - Encounter for full-term uncomplicated delivery Status: Acute (2) Preeclampsia: Code(s): O14.90 - Unspecified pre-eclampsia, unspecified trimester Status: Acute (3) 38 weeks gestation of : Code(s): Z3A.38 - 38 weeks gestation of Status: Acute OB - DS: Summary OB Procedures : NST, PIH Mgmt and Ultrasound OB Procedures Intrapartum: Spontaneous Vag Delivery OB Procedures: : None Peripartum Data Infant Delivery Method: Natural Vaginal Laceration Description: Perineal - 2nd Degree complications: none Status at Discharge Functional status at discharge: independent ambulation Overall status at discharge: patient is progressing back to baseline Time Spent with Patient Time attestation: Total time spent providing and/or coordinating discharge services: DS: Data Data Completed and Pending Labs on day of discharge: Labs from last 24 hours 11/17/22 15:40 RPR Non-reactive Discharge Plan Discharge Attending physician on discharge: Marly Rojas Discharging Clinician: Marly Rojas Anticipated Discharge Date/Time: 11/21/22 07:39 Patient Disposition: Home, Self-Care Activity: may shower and pelvic rest Diet: regular Patient Instructions: Antibiotic Form Stand Alone Forms: General Discharge Information Follow-up/Referrals: Marly Rojas MD [Physician] - 1 Week ( and 6 week) Discharge Medications: Continued venlafaxine [Effexor XR] 75 mg Capsule,Extended Release 24hr 75 mg PO DAILY buspirone 10 mg Tablet 10 mg PO BID #2 Tablet 1 tablet PO HS cholecalciferol (vitamin D3) 25 mcg (1,000 unit) Tablet 25 mcg PO DAILY fexofenadine [Yasmin Allergy] 180 mg Tablet 180 mg PO DAILY Date of admission: 11/17/22 15:03 Primary Care Provider: Lindsay Troy Admitting Provider: Marly Rojas Attending physician on admission: Marly Rojas Condition: Stable
[2022-11-19] MEDS: OXYTOCIN 30 UNITS/NS 500 ML 30 UNITS/500 ML BAG 125 UNITS IV CONT (06:22)
[2022-11-19] MEDS: BENZOCAINE 20% AER SPR (*SP) 56 GM CAN 1 SPRAY (07:40)
[2022-11-19] MEDS: WITCH HAZEL 40 PADS 1 PAD (07:40)
[2022-11-19] MEDS: busPIRone HCL 10 MG TABLET PO ×2 (10:40→16:30)
[2022-11-19] MEDS: LORATADINE 10 MG TABLET PO (10:40)
[2022-11-19] MEDS: MULTIVIT/MIN/PREN/FOL AC/IRON TABLET 1 TAB PO (10:40)
[2022-11-19] MEDS: VENLAFAXINE HCL XR 75 MG CAP.ER.24H PO (10:40)
[2022-11-19] MEDS: IBUPROFEN 600 MG TABLET PO (16:30)
[2022-11-19] MEDS: DOCUSATE SODIUM 100 MG CAPSULE PO (16:30)
[2022-11-20 04:45] VITALS: BP 133/87; PULSE 71; RESP 16; TEMP 36.4
[2022-11-20 05:55] LABS: Hematocrit 33.8 % (37.0-47.0); Hemoglobin 11.2 g/dL (12.0-15.0)
--- NOTE | 2022-11-20 07:47 | PM.OBPNVD ---
OB - PN: Subj Subjective Date/time seen: 11/20/22 07:47 Patient comments: no complaints, pain well controlled and other (No PIH sx) [place] baby status: doing well OB - PN: Obj Data Labs 11/20/22 04:48 11/17/22 15:40 Labs: Laboratory Results - last 24 hr 11/20/22 04:48 Hgb 11.2 L Hct 33.8 L OB - PN A/P Assessment and Plan (1) Preeclampsia: Code(s): O14.90 - Unspecified pre-eclampsia, unspecified trimester Status: Acute Assessment and Plan: VSS no symptoms Plan day: 1 Plan: routine care, discharge home and other (plans [place] for ) Time Spent With Patient Time: Total time spent is greater than 50% in coordination of care (as documented) at patient's floor/unit and/or counseling patient: Exam : Bimanual exam- vagina & uterus: other (Uterus firm, nt @U)
[2022-11-20] MEDS: busPIRone HCL 10 MG TABLET PO (07:49)
[2022-11-20] MEDS: LORATADINE 10 MG TABLET PO (07:49)
[2022-11-20] MEDS: VENLAFAXINE HCL XR 75 MG CAP.ER.24H PO (07:49)
[2022-11-20] MEDS: MULTIVIT/MIN/PREN/FOL AC/IRON TABLET 1 TAB PO (07:50)
[2022-11-20] MEDS: IBUPROFEN 600 MG TABLET PO (07:50)
[2022-11-20] MEDS: DOCUSATE SODIUM 100 MG CAPSULE PO (07:50)
[2022-11-20 08:15] VITALS: BP 135/89; PULSE 73; RESP 18; TEMP 36.5; O2SAT 99
--- NOTE | 2022-11-20 10:09 | WPDANLDPN2 ---
Anes-Prog Note L&D Date/Time: 11/20/22 10:09 Comfortable throughout: labor and delivery Neuraxial method: epidural Epidural/Spinal procedure site: clean & non-tender Neuro status: Neuro function grossly intact. Cardiovascular status: normal Respiratory status: normal Airway patency: baseline Mental status: baseline Post-Op hydration status: normal Vital Signs: Last Vital Signs Temp 36.5 C 11/20/22 08:15 Pulse 73 11/20/22 08:15 Resp 18 11/20/22 08:15 BP 135/89 11/20/22 08:15 Pulse Ox 99 11/20/22 08:15 O2 Del Method Room Air 11/19/22 16:00 Pain score (VAS): 08/11 I/O: Intake & Output 11/19/22 11/20/22 11/20/22 23:59 07:59 15:59 Intake Total 1000 1300 Output Total 2400 Balance 1000 -1100 Post-procedural complaints: none Patient feedback: Patient satisfied with anesthetic care.
--- NOTE | 2022-11-20 11:03 | PC.NURSE ---
Patient viewed the discharge video Mother & Baby Care, The First Two Weeks . Patient was given the opportunity and encouraged to ask questions. Patient verbalized understanding of information shared and has been given the mother/baby guide for home reference.
[2022-11-20] MEDS: MEASLES,MUMPS,RUBELLA VACCINE 0.5 ML VIAL SUB-Q (12:32)
[2022-11-21 08:52] VITALS: BP 128/89; PULSE 82; RESP 16; TEMP 37; O2SAT 98
== END 2022-11-20 13:20 | disposition home or self-care (01) | DRG 807 ==
LOC: ANHLDR 11-19 07:40 → ANHOB2 11-19 08:40
PROVIDERS: Admitting Provider Obstetrics & Gynecology Gynecology; PCP Advanced Practice Midwife; Visit Provider Obstetrics & Gynecology Gynecology
DX: O14.94 Unspecified pre-eclampsia, complicating childbirth (principal); Z37.0 Single live birth; Z3A.38 38 weeks gestation of pregnancy; O70.1 Second degree perineal laceration during delivery; O69.81X0 Labor and delivery complicated by cord around neck, without compression, not applicable or unspecified; O99.344 Other mental disorders complicating childbirth; F41.8 Other specified anxiety disorders; O13.4 Gestational [pregnancy-induced] hypertension without significant proteinuria, complicating childbirth
CPT/HCPCS: 36415; 59025; 80053; 81003; 81050; 82570; 82575; 84156; 84550; 85014; 85018; 85025; 86592; 86850; 86900; 86901; 87086; 88307; 90710; 99199; A9270; J2370; J2405; J2590; J2795; J3010; J7120

== ENCOUNTER 2024-07-21 17:05 | Outpatient (RCR) | payer OTHER, SELFPAY | END 2024-10-17 23:59 | disposition home or self-care (01) | LOC: ANHLAB 17:05 | PROVIDERS: PCP Advanced Practice Midwife; Visit Provider Obstetrics & Gynecology Gynecology | DX: O26.21 Pregnancy care for patient with recurrent pregnancy loss, first trimester (principal); Z3A.00 Weeks of gestation of pregnancy not specified | CPT/HCPCS: 36415; 84702 ==

== ENCOUNTER 2024-07-31 10:28 | Outpatient (CLI) | payer OTHER, SELFPAY ==
--- NOTE | ~2024-07-31 | US_ITS ---
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 FINDINGS: 3 para 1 The uterus measures 9.5 x 5.7 x 4.7 cm. A gestational sac is identified within the uterus, to the right of midline. A pole is identified, with a crown-rump length that measures 6.5 mm, corresponding to an approx imate gestational age of 6 weeks and 4 days. Adjacent to the gestational sac is a triangular focus of decreased echogenicity measuring 2.1 x 2.2 x 1.8 cm, possibly a subchorionic hemorrhage. cardiac activity is identified at a rate of 109 bpm. The right ovary measures 4.1 x 2.2 x 2.4 cm. Within the right ovary is a focus of mixed echogenicity, likely a corpus luteal cyst. The left ovary measures 2.7 x 1.5 x 2.2cm, and is unremarkable in echogenicity. Estimated date of delivery by ultrasound is 03/22/2025. Free fluid is identified within the posterior cul-de-sac. IMPRESSION: Single intrauterine gestation with an approximate gestational age of 6 weeks and 4 days, with c ardiac activity identified at a rate of 109 bpm. Free fluid within the posterior cul-de-sac. Short-term follow-up is recommended. Reviewed, dictated and finalized at location A. RAL APPELLATE CLERK IMPRESSION: Single intrauterine gestation with an approximate gestational age of 6 weeks an d 4 days, with cardiac activity identified at a rate of 109 bpm. Free fluid within the posterior cul-de-sac. Short-term follow-up is recommended.
== END 2024-07-31 10:29 | disposition home or self-care (01) ==
PROVIDERS: PCP Obstetrics & Gynecology Gynecology; Visit Provider Obstetrics & Gynecology Gynecology
DX: O26.21 Pregnancy care for patient with recurrent pregnancy loss, first trimester (principal)
CPT/HCPCS: 76801; 76817

== ENCOUNTER 2024-08-14 09:41 | Outpatient (CLI) | payer OTHER, SELFPAY ==
--- NOTE | ~2024-08-14 | US_ITS ---
EXAMINATION: US OB <= 14 weeks fetus DATE: 08/14/2024 10:07 INDICATION: Subchorionic hematoma during first trimester . Previous failed . TECHNIQUE: Real-time pelvic ultrasound utilizing both a transvaginal and transabdominal probe was pe rformed. The interpreting radiologist was not present for the study. COMPARISON: 07/31/2024 FINDINGS: The uterus measures 9.6 x 3.2 x 4.9 cm. There is an intrauterine gestational sac.A single internal f etal pole is identified. The crown rump length measures 2.2 cm, which is concordant within 2 days of the previously estimated gestational age of 8 weeks and 4 days. heart motion is identified gordon uring 181 beats per minute (bpm) by M-mode Doppler.Increased size of a now 1.7 x 1.6 x 1.1 cm hypoech oic subchorionic hematoma along the left inferior margin of the gestational sac. The right ovary measures 3.2 x 3.8 x 2.0 cm. Vascular flow identified in the right ovary on color Dop pler. The left ovary is not visualized. There is no free fluid in the pelvis. IMPRESSION: 1. Single living fetus with heart rate of 181 bpm. 2. [place]-rump length of 2.2 cm which remains concordant with the previously estimated gestational age by ultrasound of 8 weeks 4 day(s) with ultrasound estimated date of delivery (JULIANA) of 03/22/2025. 3. Interval decrease in size of the previously seen small subchorionic hematoma. Reviewed, dictated and finalized at location B. A[employer]W IMPRESSION: 1. Single living fetus with heart rate of 181 bpm. 2. [place]-rump length of 2.2 cm which remains concordant with the previously est imated gestational age by ultrasound of 8 weeks 4 day(s) with ultrasound estima [place] date of delivery (JULIANA) of 03/22/2025. 3. Interval decrease in size of the previously seen small subchorionic hematoma .
== END 2024-08-14 09:42 | disposition home or self-care (01) ==
PROVIDERS: PCP Obstetrics & Gynecology; Visit Provider Nurse Practitioner Women's Health
DX: O26.21 Pregnancy care for patient with recurrent pregnancy loss, first trimester (principal); Z3A.00 Weeks of gestation of pregnancy not specified
CPT/HCPCS: 76801